=== PATIENT | female | born 1955 | race Hispanic/Latino ===

== ENCOUNTER 2021-02-22 12:37 | Emergency (ER) | payer OTHER ==
--- OUTSIDE RECORDS SUMMARY | 2021-02-22 12:40 | XMS REPORT | Continuity of Care Document ---
:1955 Author Organization [facility] t Address [address] [place] [address] Care Team Providers Name Role Phone Alexandro Martínez Primary Care Physician Therapy, Covid Infusion Attending Clinician Unavailable Chandra Correia MD Attending Clinician Chandra CORREIA Attending Clinician Unavailable Doctor Unassigned, Name Attending Clinician Unavailable Ronan TERRY, R Attending Clinician Unavailable Only, Db Test Attending Clinician Unavailable Day ELECTRONIC ENGINEERING DRAFTSPERSON Attending Clinician DAY Attending Clinician Unavailable Payers Payer Name Policy Type Policy Number Effective Date Expiration Date S ource Problems This patient has no known problems. Allergies, Adverse Reactions, Alerts Allergy Allergy Status Severity Reaction(s) Onset Inactive Treating Comm ents Source Name Type Date Date Clinician aspirin Adverse Active Info Not [facility] Reaction Available [facility] NO KNOWN Drug Active Univers ALLERGIE Class ity [facility] Social History Social Habit Start Date Stop Date Quantity Comments Source Exposure to Not sure [facility] SARS-CoV-2 (event) Medica l Branch Sex Assigned At [birth year] [facility] 00:00:00 00:00:00 [facility] Smoking Status Start Date Stop Date Source Unknown if ever smoked [facility] Medications Ordered Filled Start Stop Current Ordering Indication Dosage Frequency Signature Comments Components Source Medication Medication Date Date Medication? Clinician (SIG) Name Name casirivimab 2020-03- No [id number] 1200mg 1,200 mg, Univers -imdevimab 0-12 10-12 Subcutaneo it y of (REGEN-COV 21:45: 20:30 us, ONCE, [place] (EUA)) 00 :00 1 dose, On Medical injection Bebo Carbajal 1,200 mg 12/11/20 at 1645, Routine Estradiol Estradiol 2018-0 Yes [facility] [address] [facility] 4[facility]25 [facility] directed [facility] Atorvastati Atorvastati Yes Maxim not [facility] n Calcium n Calcium [facility] defined [facility] Symbicort Symbicort Yes Maxim not [facility] defined [facility] Zolpidem Zolpidem Yes Maxim not [facility] Tartrate Tartrate [facility] defined [facility] Alprazolam Alprazolam Yes Maxim not [facility] defined [facility] Spironolact Spironolact Yes Maxim not [facility] one one Ramirez defined [facility] Pantoprazol Pantoprazol Yes Maxim not [facility] e Sodium e Sodium Ramirez defined [facility] Lyrica Lyrica Yes Maxim (Schedule [facility] V Drug) [facility] - TAKE ONE [facility]oria CAPSULE BY l MOUTH Outpati TWICE A ent DAY Clinics Venlafaxine Venlafaxine Yes Maxim not [facility] HCl ER HCl ER Ramirez defined [facility] Vital Signs Vital Name Observation Time Observation Value Comments Source Systolic blood 2020-12-11 21:15:00 127 mm[Hg] Univer sity of pressure [facility] Diastolic blood 2020-12-11 21:15:00 81 mm[Hg] Unive rsity of pressure [facility] Heart rate 2020-12-11 21:15:00 105 /min [facility] Body temperature 2020-12-11 21:15:00 37.22 Ioana [facility] Respiratory rate 2020-12-11 21:15:00 18 /min [facility] Oxygen saturation in 2020-12-11 21:15:00 94 /min [facility] Arterial blood by [facility] Pulse oximetry Branch Body height 2020-12-11 20:29:00 162.6 cm [facility] Body weight 2020-12-11 20:29:00 76.204 kg [facility] BMI 2020-12-11 20:29:00 28.84 kg/m2 [facility] Procedures Procedure Date / Time Performed Performing Clinician Souralaina e [id number] CONSENT 2020-12-11 05:01:00 Doctor Unassigned, No [facility] ASSIGNMENT OF BENEFITS 2020-10-26 19:10:15 Doctor Unassigned, No [facility] Encounters Start End Encounter Admission Attending Care Care Encounter Source Date/Time Date/Time Type Type Clinicians Facility Department ID 2020-12-11 2020-12-11 Nurse Therapy, Adc Covid Infusion [facility] [id number] Univers 15:29:07 16:29:07 Visit José Luis Correia [id number] ity [facility] [id number] [id number] [facility] 053 Branch 2020-12-11 2020-12-11 Outpatient [facility] [id number] Univers 16:00:00 16:00:00 [id number] ity [facility] 2020-12-11 2020-12-11 Outpatient R JEFF, [facility] [id number] Univers 16:00:00 16:00:00 JOSÉ LUIS ity [facility] 2020-12-11 2020-12-11 Orders Doctor MELÉNDEZ [id number] Univers 00:00:00 00:00:00 Only UnassINGRID kelsey [id number] ity of [place] [facility] [id number] Aristides as [phone] [facility] 009 Branch 2020-10-27 2020-10-27 Telephone MEDHAT Ferraro [id number] Univers 00:00:00 00:00:00 Soledad QUINTERO [id number] it y of [facility] [id number] Aristides as [phone] [facility] 019 Branch 2020-10-26 2020-10-26 Laboratory Only, Ang Db Test [facility] [id number] Univers 14:11:46 14:21:46 Only Marga Peck [facility] [id number] ity of [place] [id number] Aristides as Kale?Blea [id number] Ar dicjelani [address] Medical [facility] 2020-10-26 2020-10-26 Outpatient R DAY [facility] [id number] Univers 13:50:00 13:50:00 MARGA ity [facility] 2020-10-26 2020-10-26 Orders Doctor MEDHAT [id number] Univers 00:00:00 00:00:00 Only Unassigned, INGRID [id number] ity of [place] [facility] [id number] Aristides as [phone] [address] 2020-08-13 2020-08-13 Outpatient [facility] [id number] [facility] 2020-07-24 2020-07-24 Outpatient [facility] [id number] [facility]00 [facility] 2018-06-28 2018-06-28 [facility] [id number] 15:30:00 15:30:00 [facility] 2018-06-24 2018-06-24 [facility] [id number] 10:00:00 10:00:00 t Specialty/U [facility]idi [facility] - Specialty rology Memori a /Urology Clinic [facility] ent [facility] 2018-04-27 2018-04-27 [facility] [id number] 13:30:00 13:30:00 t [facility] Results This patient has no known results.
[2021-02-22 14:32] LABS: SARS-COV-2 RT PCR POSITIVE (NEGATIVE)
--- NOTE | 2021-02-22 15:05 | ER ---
Nurse's Notes [facility] Name: Selene Perdomo Age: 65 yrs Sex: Female : 1955 Arrival Date: 02/22/2021 Time: 12:38 Bed 11 Private MD: Diagnosis: SARS-associated coronavirus as the cause of diseases classified elsewhere Presentation: 02/22 12:49 Chief complaint: Patient states: Cough and body aches that began this morning. Pt ss states, "This feels the same as when I had covid last.". Coronavirus screen: Client denies travel out of the [place] in the last 14 days. Ebola Screen: Patient denies exposure to infectious person. Patient denies travel to an Ebola-affected area in the 21 days before illness onset. Initial Sepsis Screen: Does the patient meet any 2 criteria? No. Patient's initial sepsis screen is negative. Does the patient have a suspected source of infection? No. Patient's initial sepsis screen is negative. Risk Assessment: Do you want to hurt yourself or someone else? Patient reports no desire to harm self or others. Onset of symptoms was February 22, 2021. 12:49 Method Of Arrival: Ambulatory ss 12:49 Acuity: KRISTINA 4 ss Historical: - Allergies: 12:51 No Known Allergies; ss - PMHx: 12:51 Hypertensive disorder; Diabetes mellitus; Asthma; Fibromyalgia; ss - Immunization history:: Client reports receiving the 2nd dose of the Covid vaccine. - Social history:: Smoking status: Patient denies any tobacco usage or history of. Screenin:39 Abuse screen: Denies threats or abuse. Denies injuries from another. Nutritional ss screening: No deficits noted. Tuberculosis screening: Never had TB. Fall Risk None identified. Assessment: 14:39 General: Behavior is calm, cooperative. Neuro: Level of Consciousness is awake, alert, ss obeys commands. Cardiovascular: Capillary refill < 3 seconds is brisk in bilateral fingers. Respiratory: Reports cough that is Airway is patent Respiratory effort is even, unlabored, Respiratory pattern is regular, symmetrical. Derm: Skin is intact, is healthy with good turgor, Skin is dry, Skin is pink, warm \\T\\ dry. normal. Vital Signs: 12:49 Pulse 107; Resp 18; Temp 98.2(TE); Weight 74.84 kg; Height 5 ft. 1 in. (154.94 cm); ss Pain 5/10; 12:52 BP 148 / 90; Pulse Ox 96% ; ss 12:52 Pulse 87; ss 12:49 Body Mass Index 31.18 (74.84 kg, 154.94 cm) ED Course: 12:38 Patient arrived in ED. ds1 12:51 Triage completed. ss 12:51 Arm band placed on right wrist. ss 14:39 Patient has correct armband on for positive identification. Bed in low position. ss 14:39 No provider procedures requiring assistance completed. Patient did not have IV access ss during this emergency room visit. 14:40 Sid Landeros PA is PHCP. jr8 14:40 Tay nAdrew MD is Attending Physician. jr8 15:27 Shantel Marsh, RN is Primary Nurse. ss Administered Medications: No medications were administered Outcome: 15:04 Discharge ordered by . jr8 15:30 Discharged to home ambulatory. ss 15:30 Condition: good 15:30 Discharge instructions given to patient, Instructed on discharge instructions, follow up and referral plans. Demonstrated understanding of instructions, follow-up care, Prescriptions given X 2. 15:30 Patient left the ED. ss Signatures: Yesy Jacob ds1 Shantel Marsh, MARA RN Sid Landeros PA PA jr8
--- NOTE | 2021-02-22 15:05 | EDPHYS ---
Physician Documentation [facility] Name: Selene Perdomo Age: 65 yrs Sex: Female : 1955 Arrival Date: 02/22/2021 Time: 12:38 Bed 11 Private MD: ED Physician Tay Andrew HPI: 02/22 15:05 This 65 yrs old Female presents to ER via Ambulatory with complaints of Covid jr8 Test, Cough, Chills. 15:05 Onset: The symptoms/episode began/occurred gradually. Associated signs and symptoms: jr8 Pertinent positives: cough, headache, body aches chills. The patient has experienced a previous episode. The patient has not recently seen a physician. Historical: - Allergies: 12:51 No Known Allergies; ss - PMHx: 12:51 Hypertensive disorder; Diabetes mellitus; Asthma; Fibromyalgia; ss - Immunization history:: Client reports receiving the 2nd dose of the Covid vaccine. - Social history:: Smoking status: Patient denies any tobacco usage or history of. ROS: 15:05 Eyes: Negative for injury, pain, redness, and discharge, Neck: Negative for injury, jr8 pain, and swelling, Cardiovascular: Negative for chest pain, palpitations, and edema, Abdomen/GI: Negative for abdominal pain, nausea, vomiting, diarrhea, and constipation, Back: Negative for injury and pain, MS/Extremity: Negative for injury and deformity, Skin: Negative for injury, rash, and discoloration. 15:05 Constitutional: Positive for body aches, chills. 15:05 ENT: Positive for sinus congestion. 15:05 Respiratory: Positive for cough, Negative for dyspnea on exertion, shortness of breath, sputum production, wheezing. 15:05 Neuro: Positive for headache. 15:05 All other systems are negative. Exam: 15:05 Constitutional: This is a well developed, well nourished patient who is awake, alert, jr8 and in no acute distress. Eyes: Pupils equal round and reactive to light, extra-ocular motions intact. Lids and lashes normal. Conjunctiva and sclera are non-icteric and not injected. Cornea within normal limits. Periorbital areas with no swelling, redness, or edema. ENT: Nares patent. No nasal discharge, no septal abnormalities noted. Tympanic membranes are normal and external auditory canals are clear. Oropharynx with no redness, swelling, or masses, exudates, or evidence of obstruction, uvula midline. Mucous membranes moist. Neck: Trachea midline, no thyromegaly or masses palpated, and no cervical lymphadenopathy. Supple, full range of motion without nuchal rigidity, or vertebral point tenderness. No Meningismus. Cardiovascular: Regular rate and rhythm with a normal S1 and S2. No gallops, murmurs, or rubs. Normal PMI, no JVD. No pulse deficits. Respiratory: Lungs have equal breath sounds bilaterally, clear to auscultation and percussion. No rales, rhonchi or wheezes noted. No increased work of breathing, no retractions or nasal flaring. Abdomen/GI: Soft, non-tender, with normal bowel sounds. No distension or tympany. No guarding or rebound. No evidence of tenderness throughout. Back: No spinal tenderness. No costovertebral tenderness. Full range of motion. Skin: Warm, dry with normal turgor. Normal color with no rashes, no lesions, and no evidence of cellulitis. MS/ Extremity: Pulses equal, no cyanosis. Neurovascular intact. Full, normal range of motion. Neuro: Awake and alert, GCS 15, oriented to person, place, time, and situation. Cranial nerves II-XII grossly intact. Motor strength 5/5 in all extremities. Sensory grossly intact. Cerebellar exam normal. Normal gait. Vital Signs: 12:49 Pulse 107; Resp 18; Temp 98.2(TE); Weight 74.84 kg; Height 5 ft. 1 in. (154.94 cm); Pain 5/10; 12:52 BP 148 / 90; Pulse Ox 96% ; ss 12:52 Pulse 87; ss 12:49 Body Mass Index 31.18 (74.84 kg, 154.94 cm) MDM: 14:40 Patient medically screened. [email or web address] 15:04 Data reviewed: vital signs, nurses notes, lab test result(s), and as a result, I will [email or web address] discharge patient. Data interpreted: Pulse oximetry: on room air is 96 %. Interpretation: normal. Counseling: I had a detailed discussion with the patient and/or guardian regarding: the historical points, exam findings, and any diagnostic results supporting the discharge/admit diagnosis, lab results, the need for outpatient follow up, a family practitioner, to return to the emergency department if symptoms worsen or persist or if there are any questions or concerns that arise at home. 02/22 12:52 Order name: COVID-19/FLU A+B (Document "Date of Onset" if Symptomatic); Complete Time: ss 14:45 Administered Medications: No medications were administered Disposition Summary: 02/22/21 15:04 Discharge Ordered Location: Home jr8 Problem: new jr8 Symptoms: have improved jr8 Condition: Stable jr8 Diagnosis - SARS-associated coronavirus as the cause of diseases classified elsewhere jr8 Followup: jr8 - With: Private Physician - When: 5 - 6 days - Reason: Recheck today's complaints, Continuance of care, Re-evaluation by your physician Discharge Instructions: - Discharge Summary Sheet jr8 - COVID-19 jr8 - 10 Things You Can Do to Manage Your COVID-19 Symptoms at Home - [facility] jr8 Forms: - Medication Reconciliation Form jr8 - Thank You Letter jr8 - Antibiotic Education jr8 - Prescription Opioid Use jr8 Prescriptions: - promethazine-DM 6.25-15 mg/5 mL Oral syrup - take 5 milliliter by ORAL route every 4-6 hours As needed as needed, not to jr8 exceed 30 mL in 24 hours; 110 milliliter; Refills: 0, Product Selection Permitted Addendum: 02/24/2021 18:49 Co-signature as Attending Physician, Tay Andrew MD. m a2 Signatures: Dispatcher [employer] Shantel Onofre RN RN Sid Landeros PA PA jr8 Tay Andrew MD MD ma2 Corrections: (The following items were deleted from the chart) 02/22 15:03 14:45 Chest Single View+RAD.RAD.BRZ ordered. EDMS EDMS
[2021-02-22 15:35] VITALS: TEMP 98.2
[2021-02-22 15:36] VITALS: BP 148/90; O2SAT 96
== END 2021-02-22 15:30 | disposition home or self-care (01) ==
LOC: ER 12:37
DX: U07.1 COVID-19 (principal); I10 Essential (primary) hypertension
CPT/HCPCS: 0240U; 99282

== ENCOUNTER 2024-02-29 11:13 | Day surgery (SDC) | payer OTHER ==
[2024-02-26 15:54] LABS: Absolute Basophils 0.1 K/uL (0-0.5); Absolute Eosinophils 0.5 K/uL (0-0.5); Absolute Monocytes 0.6 K/uL (0.1-1.3); Absolute Neutrophil 3.4 K/uL (1.8-8.0); Basophils % 1.4 % (0-1.3); Hematocrit 39.5 % (36.0-45.0); Hemoglobin 12.7 g/dL (12.0-15.0); Lymphocytes % 30.1 % (15.3-44.8); MCHC 32.2 g/dL (32.0-36.0); MPV 8.1 fL (7.6-11.3); Monocytes % 9.1 % (3.3-12.3); Neutrophils % 51.4 % (41.7-73.7); Platelets 252 thou/uL (152-406); RBC Red Blood Cell Count 4.24 M/uL (3.86-4.86); Red Cell Distribution Width 14.1 % (12.1-15.2)
--- NOTE | 2024-02-26 17:05 | RAD REPORT ---
EXAMINATION: TWO VIEW CHEST XR CLINICAL INDICATION: Female, 68 years old. [facility] Pre op pending arm mass removal TECHNIQUE: 2 view radiographs of the chest were performed. COMPARISON: 08/22/2021 FINDINGS: The lungs are well inflated and clear. No pneumothorax or sizable effusion. The heart is normal in si ze. Mediastinal contours are unremarkable. IMPRESSION: No acute or significant abnormalities.
--- NOTE | 2024-02-29 11:18 | EKG ---
Test Date: 2024-02-26 Test Time: 16:41:04 Tube Puller: AD MEASUREMENT RESULTS: Intervals: Rate: 64 MO: 148 QRSD: 82 QT: 404 QTc: 416 Garfield: P: 43 MO: 148 QRS: 72 T: 50 INTERPRETIVE STATEMENTS: Normal sinus rhythm Normal ECG Compared to ECG 10/12/2007 08:42:10 Sinus bradycardia no longer present Electronically Signed On 02-29-24 11:12:47 KEEPER HELPER by Geo Hernandez
[2024-02-29] MEDS: NA CHLORIDE 0.9% 1,000 ML ONE (11:30)
[2024-02-29] MEDS ORDERED: FENTANYL CITR 100 MCG/2 ML ONE (12:25)
[2024-02-29] MEDS ORDERED: ONDANSETRON 4 MG/2 ML VIAL ONE (12:25)
[2024-02-29] MEDS ORDERED: propofoL 200 MG/20 ML VIAL IV ONE (12:25)
[2024-02-29] MEDS ORDERED: LIDOCAINE 2% MPF 5 ML VIAL ONE (12:25)
[2024-02-29] MEDS ORDERED: EPHEDRINE SULF 50 MG/ML VIAL ONE (12:51)
[2024-02-29] MEDS ORDERED: dexAMETHasone 10 MG/ML VIAL ONE (12:53)
[2024-02-29] MEDS: CEFAZOLIN SODIUM 1 GM/VIAL ONE (12:54)
[2024-02-29] MEDS ORDERED: Mastisol Adhesive Liq ONE (13:04)
--- NOTE | 2024-02-29 13:35 | P.BOP ---
Preoperative diagnosis: R upper mass tender subQ mass Postoperative diagnosis: same Primary procedure: Excisional biopsy of R upper mass tender subQ mass 4x4cm Estimated blood loss: <10cc Specimen: mass, Findings: multilobulated mass Anesthesia: General Complications: None Transferred to: Recovery Room Condition: Good
[2024-02-29 13:52] VITALS: O2SAT 96
[2024-02-29 14:20] VITALS: BP 112/67; TEMP 97.6
[2024-02-29] MEDS: CODEINE 30MG/APAP 300MG TAB ONE (14:45)
== END 2024-02-29 15:06 | disposition home or self-care (01) ==
LOC: OR 11:13
PROVIDERS: ATTEND Surgery
PROC: 0JBD0ZZ Excision of Right Upper Arm Subcutaneous Tissue and Fascia, Open Approach (ICD-10-PCS; principal; 2024-02-29 12:45)
DX: D17.21 Benign lipomatous neoplasm of skin and subcutaneous tissue of right arm (principal)
CPT/HCPCS: 11404; 93005; 85025; 80048; 36415; 82947 ×2; 88304; 71046; J2704; J2003; J3010; J1100; J2405; J7030; J0690

== ENCOUNTER 2024-04-04 08:08 | Emergency (ER) | payer OTHER ==
[2024-04-04 09:09] LABS: Absolute Basophils 0.1 K/uL (0-0.5); Absolute Eosinophils 0.5 K/uL (0-0.5); Absolute Lymphocytes (CBC) 1.3 K/uL (0.7-4.9); Absolute Monocytes 1.1 K/uL (0.1-1.3); Absolute Neutrophil 10.3 K/uL (1.8-8.0); Basophils % 0.7 % (0-1.3); Eosinophils % 3.5 % (0-4.4); Hematocrit 41.6 % (36.0-45.0); Hemoglobin 14.1 g/dL (12.0-15.0); Lymphocytes % 9.6 % (15.3-44.8); MCH 30.6 pg (27.0-35.0); MPV 8.7 fL (7.6-11.3); Monocytes % 8.1 % (3.3-12.3); Neutrophils % 78.1 % (41.7-73.7); Platelets 301 thou/uL (152-406); RBC Red Blood Cell Count 4.62 M/uL (3.86-4.86); Red Cell Distribution Width 14.4 % (12.1-15.2)
[2024-04-04 09:20] LABS: BUN Blood Urea Nitrogen 12 mg/dL (7-18); Bicarbonate 30 mEq/L (21-32); Glomerular Filtration Rate 58 ml/min (=/>90); Glucose Level 121 mg/dL (74-106); Magnesium 2.4 mg/dL (1.6-2.4); Sodium Level 139 mEq/L (136-145)
[2024-04-04 09:23] LABS: Troponin High Sensitivity < 3.0 pg/mL (<58.9)
[2024-04-04 09:50] LABS: Specific Gravity 1.012 (1.005-1.030); Sqamous Epithelial <5 /HPF (None Seen); Urine Bacteria None Seen /HPF (<20); Urine Bilirubin NEGATIVE (Negative); Urine Blood Negative (Negative); Urine Clarity Clear (Clear); Urine Color Light-Yellow (Yellow); Urine Culture Reflex Order NOT NEEDED; Urine Glucose NEGATIVE (Negative); Urine Ketones NEGATIVE (Negative); Urine Micro Reflex YN NO BILL MICROSCOPIC; Urine Mucus Slight /HPF (None Seen); Urine Nitrite NEGATIVE (Negative); Urine Protein NEGATIVE (Negative); Urine RBC None Seen /HPF (None Seen); Urine Urobilinogen Normal (Normal); Urine WBC None Seen /HPF (<5)
[2024-04-04] MEDS ORDERED: METHOCARBAMOL 1,000 MG/10 ML VIAL ONE ×2 (10:24→10:48)
[2024-04-04] MEDS ORDERED: KETOROLAC 30 MG/ML INJ ONE (10:25)
[2024-04-04] MEDS ORDERED: NA CHLORIDE 0.9% 100 ML ONE ×2 (10:25→10:48)
--- NOTE | 2024-04-04 10:42 | RAD REPORT ---
Procedure: Chest Single View HISTORY: Cough COMPARISON: 2023 FINDINGS: The lungs appear clear of acute infiltrate. No significant pleural effusion noted. The heart is normal size. IMPRESSION: No acute abnormality is displayed.
--- NOTE | 2024-04-04 11:59 | RAD REPORT ---
EXAMINATION: CT HEAD WITHOUT CONTRAST CT CERVICAL SPINE WITHOUT CONTRAST CLINICAL INDICATION: Dizziness. Headache. Neck pain TECHNIQUE: Axial CT images from the skull base to the vertex without intravenous contrast. Axial CT i mages through the cervical spine were obtained without intravenous contrast. Sagittal and coronal reformatted images were created from the data set. Coronal and sagittal reformatted images were creat ed from the data set. One or more of the following dose reduction techniques were used: Automated exposure control, adjustment of the mA and/or kV according to patient size, and/or iterative reconstr uction. Unless otherwise specified, incidental findings do not require dedicated imaging follow-up. [id number]. Comparison: None FINDINGS: An intracranial bleed is not seen. Ventricles are normal in caliber. No significant hypodensity within the brain No extra-axial fluid collection. No fluid within the sinuses/mastoids No fracture or dislocation is seen involving the cervical spine. No high-grade central/foraminal stenosis noted. IMPRESSION: No acute intracranial abnormality noted A cervical fracture is not seen. If the patient continues to have symptoms to suggest acute COMPUTER EDUCATION TEACHER/spinal pathology then MRI would be rec ommended
--- NOTE | 2024-04-04 12:03 | RAD REPORT ---
EXAMINATION: CTA HEAD CLINICAL INDICATION: Headache. Dizziness TECHNIQUE: Axial CT images were obtained through the head after 100 cc Isovue-370 intravenous contras t utilizing angiographic protocol with 3D post-processing (maximum intensity projection images, volume rendered images and/or shaded surface rendered images). One or more of the following dose red uction techniques were used: Automated exposure control, adjustment of the mA and/or kV according to patient size, and/or iterative reconstruction. Unless otherwise specified, incidental findings do not require dedicated imaging follow-up. COMPARISON: None FINDINGS: Distal internal carotid, basilar, anterior cerebral, middle cerebral and posterior cerebral arteries do not demonstrate a significant stenosis An aneurysm not noted. No large vessel occlusion IMPRESSION: No acute vascular abnormality displayed
--- NOTE | 2024-04-04 12:03 | RAD REPORT ---
EXAMINATION: Neck Angio CLINICAL INDICATION: Neck pain. Dizziness. Headache TECHNIQUE: Axial CT images were obtained from the aortic arch to the skull base after intravenous adm inistration of 100 cc Isovue-370 utilizing angiographic protocol. Multiplanar reformats, as well as 3D post-processing (maximum intensity projection images, volume rendered images and/or shaded surface rendered images) were generated and reviewed. One or more of the following dose reduction techniques were used: Automated exposure control, adjustment of the mA and/or kV according to patient size, and/or iterative reconstruction. Unless otherwise specified, incidental findings do not require dedicated imaging follow-up. COMPARISON: No prior exam. FINDINGS: The visualized aortic arch and great vessels do not demonstrate a significant abnormality Common carotid, internal carotid and external carotid arteries unremarkable. Vertebral arteries unremarkable No significant stenosis noted. A dissection is not seen. Methods for NASCET criteria: Mild stenosis, 0% to 49%; Moderate stenosis 50% to 69%; Severe stenosis, 70% to 99% IMPRESSION: No acute vascular abnormality displayed
--- NOTE | 2024-04-04 12:21 | ER ---
Nurse's Notes [facility] Name: Selene Perdomo Age: 68 yrs Sex: Female : 1955 Arrival Date: 04/04/2024 Time: 08:08 Bed 10 Private MD: Diagnosis: Cervicalgia Presentation: 04/04 08:17 Chief complaint: Patient states: Cough since Thursday and not sleeping well. Vomited once ll1 Thursday. BP fluctuating 120-140's systolic for 2 days. R side of neck pain states "artery" pain. Coronavirus screen: Client denies travel out of the [place] in the last 14 days. At this time, the client does not indicate any symptoms associated with coronavirus-19. Ebola Screen: Patient denies travel to an Ebola-affected area in the 21 days before illness onset. Acute neurological deficit: none identified. Initial Sepsis Screen: Does the patient meet any 2 criteria? No. Patient's initial sepsis screen is negative. Does the patient have a suspected source of infection? No. Patient's initial sepsis screen is negative. Risk Assessment: Do you want to hurt yourself or someone else? Patient reports no desire to harm self or others. Onset of symptoms was April 01, 2024. 08:17 Method Of Arrival: Wheelchair ll1 08:17 Acuity: KRISTINA 3 ll1 Triage Assessment: 08:17 General: Appears uncomfortable, Behavior is calm, cooperative, appropriate for age. ll1 Pain: Complains of pain in R neck Quality of pain is described as aching. EENT: Reports pain in R neck. Neuro: Reports. Respiratory: Reports cough that is. Historical: - Allergies: 08:15 Sulfa (Sulfonamide Antibiotics); ll1 - PMHx: 08:15 Asthma; diabetes mellitus; Fibromyalgia; Hypertensive disorder; ll1 - PSHx: 08:15 arm surgery lump reoved; ll1 - Immunization history:: Adult Immunizations up to date. - Infectious Disease History:: Denies. - Social history:: Smoking status: Patient denies any tobacco usage or history of. Screenin:00 [facility] ED Fall Risk Assessment (Adult) History of falling in the last 3 months, hb including since admission No falls in past 3 months (0 pts) Confusion or Disorientation No (0 pts) Intoxicated or Sedated No (0 pts) Impaired Gait No (0 pts) Mobility Assist Device Used No (0 pt) Altered Elimination No (0 pt) Score/Fall Risk Level 0 - 2 = Low Risk Oriented to surroundings, Maintained a safe environment, Educated pt \\T\\ family on fall prevention, incl call for assistance when getting out of bed. Abuse screen: Denies threats or abuse. Denies injuries from another. Nutritional screening: No deficits noted. Tuberculosis screening: No symptoms or risk factors identified. Assessment: 10:24 Reassessment: Patient and/or family updated on plan of care and expected duration. Pain ll1 level reassessed. 10:59 General: Appears in no apparent distress. uncomfortable, Behavior is calm, cooperative. hb Pain: Pain currently is 8 out of 10 on a pain scale. Neuro: Level of Consciousness is awake, alert, obeys commands, Oriented to person, place, time, situation. Cardiovascular: Patient's skin is warm and dry. Respiratory: Respiratory effort is even, unlabored, Respiratory pattern is regular, symmetrical. GI: No signs and/or symptoms were reported involving the gastrointestinal system. : No signs and/or symptoms were reported regarding the genitourinary system. EENT: No signs and/or symptoms were reported regarding the EENT system. Derm: Skin is pink, warm \\T\\ dry. Musculoskeletal: Reports severe right sided neck pain that radiates to right head. 12:30 Reassessment: Patient appears in no apparent distress at this time. Patient and/or hb family updated on plan of care and expected duration. Pain level reassessed. Patient is alert, oriented x 3, equal unlabored respirations, skin warm/dry/pink. Vital Signs: 08:17 BP 130 / 75; Pulse 88; Resp 17; Temp 97.1; Pulse Ox 95% ; Weight 76.2 kg; Height 5 ft. ll1 0 in. ; Pain 9/10; 12:00 BP 132 / 82; Pulse 80; Resp 16; Pulse Ox 99% on R/A; hb 08:17 Body Mass Index 32.81 (76.20 kg, 152.4 cm) ll1 08:17 Pain Scale: Adult ll1 ED Course: 08:11 Patient arrived in ED. im 08:16 Doc Bullard PA is PHCP. cp 08:16 Batres, Rui, DO is Attending Physician. cp 08:19 Triage completed. ll1 08:19 Arm band placed on. ll1 08:55 Inserted saline lock: 20 gauge in right antecubital area, using aseptic technique. hb ,using aseptic technique. by [facility] Blood collected. Flushed with 10 mL NS. 08:56 Basic Metabolic Panel Sent. ty 08:56 CBC with Diff Sent. ty 08:56 Magnesium Sent. ty 08:56 Troponin HS Sent. ty 09:25 XRAY Chest (1 view) In Process Unspecified. EDMS 10:24 Patient placed in an exam room, on a stretcher. ll1 10:45 Tierra Tafoya, RN is Primary Nurse. hb 11:00 Patient has correct armband on for positive identification. Bed in low position. Call hb light in reach. Side rails up X 1. Provided Education on: tests, result times, medications . 11:29 CT Head C Spine In Process Unspecified. EDMS 11:29 CT Head Angio In Process Unspecified. EDMS 11:29 CT Neck Angio In Process Unspecified. EDMS 12:42 No provider procedures requiring assistance completed. IV discontinued, intact, hb bleeding controlled, No redness/swelling at site. Pressure dressing applied. Administered Medications: 08:24 CANCELLED (Physician Discretion): [id number] mg IVPB once over 1 hrs; (mix in NS cp 100 mL) 10:59 Drug: Ketorolac IVP 15 mg IVP once Route: IVP; Site: left antecubital; hb 11:50 Follow up: Response: No adverse reaction hb 11:50 Follow up: Response: No adverse reaction hb 10:59 Drug: Methocarbamol IVPB 500 mg IVPB once over 1 hrs; (mix in NS 100 mL) Route: IVPB; hb Infused Over: 1 hrs; Site: left antecubital; 11:55 Follow up: Response: No adverse reaction; IV Status: Completed infusion; IV Intake: hb 100ml 12:41 Drug: HYDROcodone-acetaminophen PO 5 mg-325 mg 1 tabs PO once Route: PO; hb 12:41 Follow up: Response: Medication administered at discharge. hb Medication: 12:00 VIS not applicable for this client. hb Intake: 11:55 IV: 100ml; Total: 100ml. hb Outcome: 12:20 Discharge ordered by . cp 12:42 Discharged to home via wheelchair, with family, hb 12:42 Condition: stable 12:42 Discharge instructions given to patient, Instructed on discharge instructions, follow up and referral plans. medication usage, Demonstrated understanding of instructions, follow-up care, medications, Prescriptions given X 2, 12:43 Patient left the ED. Signatures: Dispatcher [employer] EDMS Doc Bullard PA PA cp Baxter, Heather, RN RN Yanelis Sultana RN RN ll1 Shala Cooper Tylor ty
--- NOTE | 2024-04-04 12:21 | EDPHYS ---
Physician Documentation [facility] Name: Selene Perdomo Age: 68 yrs Sex: Female : 1955 Arrival Date: 04/04/2024 Time: 08:08 Bed 10 Private MD: ED Physician Rui Batres HPI: 04/04 08:20 This 68 yrs old Female presents to ER via Wheelchair with complaints of High cp Blood Pressure, Neck Pain, <24hrs Old, Dizziness. 08:20 The patient or guardian complains of pain, that is acute. The symptoms are located cp right side of neck. 08:20 Onset: The symptoms/episode began/occurred yesterday. cp 08:20 Context: patient reports pain to right side of neck started shortly after waking up. cp 08:20 Associated signs and symptoms: Pertinent positives: headache, Pertinent negatives: cp fever, numbness, tingling, vomiting, weakness. Modifying factors: the symptoms are aggravated by movement, pain markedly worse when turning head to right. Historical: - Allergies: 08:15 Sulfa (Sulfonamide Antibiotics); ll1 - PMHx: 08:15 Asthma; diabetes mellitus; Fibromyalgia; Hypertensive disorder; ll1 - PSHx: 08:15 arm surgery lump reoved; ll1 - Immunization history:: Adult Immunizations up to date. - Infectious Disease History:: Denies. - Social history:: Smoking status: Patient denies any tobacco usage or history of. ROS: 08:25 Neck: Positive for pain with movement, pain at rest, swelling, tenderness, cp 08:25 Eyes: Negative for injury, pain, redness, and discharge, cp 08:25 Constitutional: Negative for body aches, chills, fever, poor PO intake, 08:25 ENT: Negative for drainage from ear(s), ear pain, sore throat, difficulty swallowing, difficulty handling secretions, 08:25 Cardiovascular: Negative for chest pain, edema, palpitations, 08:25 Respiratory: Negative for cough, shortness of breath, wheezing, 08:25 Abdomen/GI: Negative for abdominal pain, vomiting, diarrhea, constipation, 08:25 Neuro: Positive for headache, Negative for altered mental status, numbness, syncope, weakness, 08:25 All other systems are negative, cp Exam: 08:30 Constitutional: The patient appears in no acute distress, alert, awake, cp non-diaphoretic, non-toxic, well developed, well nourished, uncomfortable, 08:30 Head/Face: Normocephalic, atraumatic. cp 08:30 Eyes: Periorbital structures: appear normal, Conjunctiva: normal, no exudate, no injection, Sclera: no appreciated abnormality, Lids and lashes: appear normal, bilaterally, 08:30 ENT: External ear(s): are unremarkable, Nose: is normal, Mouth: Lips: moist, Oral mucosa: moist, Posterior pharynx: Airway: no evidence of obstruction, patent, erythema, is not appreciated, exudate, is not appreciated, 08:30 Neck: ROM/movement: pain, that is severe, with rotation to the left, with rotation to the right, limited range of motion, when rotating to the right, Meningeal signs: are not present, Lymph nodes: no appreciated lymphadenopathy, 08:30 Chest/axilla: Inspection: normal, 08:30 Cardiovascular: Rate: normal, Rhythm: regular, Pulses: Pulses are 2+ in right radial artery and left radial artery. Edema: is not appreciated, JVD: is not appreciated, 08:30 Respiratory: the patient does not display signs of respiratory distress, Respirations: normal, no use of accessory muscles, no retractions, labored breathing, is not present, Breath sounds: are clear throughout, no decreased breath sounds, no stridor, no wheezing, 08:30 Abdomen/GI: Exam negative for discomfort, distension, guarding, Inspection: abdomen appears normal, 08:30 Neuro: Orientation: to person, place \T\ time. Mentation: is normal, Cerebellar function: is grossly normal, Motor: moves all fours, no focal deficits, Sensation: is normal, 08:57 ECG was reviewed by the Attending Physician. cp Vital Signs: 08:17 BP 130 / 75; Pulse 88; Resp 17; Temp 97.1; Pulse Ox 95% ; Weight 76.2 kg; Height 5 ft. ll1 0 in. ; Pain 9/10; 12:00 BP 132 / 82; Pulse 80; Resp 16; Pulse Ox 99% on R/A; hb 08:17 Body Mass Index 32.81 (76.20 kg, 152.4 cm) ll1 08:17 Pain Scale: Adult ll1 MDM: 09:00 Differential diagnosis: C-Spine Fracture Cervical Disc Herniation Cervical Raiculopathy cp cervical strain, fracture, Spondylosis Thoracic Outlet Syndrome torticollis. 12:20 Medical Screening Exam initiated 12:20 Data reviewed: vital signs, nurses notes, lab test result(s), EKG, radiologic studies, cp CT scan, plain films, and as a result, I will discharge patient. 12:20 I considered the following discharge prescriptions or medication management in the emergency department Medications were administered in the Emergency Department. See MAR. Care significantly affected by the following chronic conditions: Diabetes, Hypertension. Counseling: I had a detailed discussion with the patient and/or guardian regarding the historical points, exam findings, and any diagnostic results supporting the discharge/admit diagnosis, lab results, radiology results, the need for outpatient follow up, a family practitioner, to return to the emergency department if symptoms worsen or persist or if there are any questions or concerns that arise at home. Response to treatment: the patient's symptoms have markedly improved after treatment, and as a result, I will discharge patient. 04/04 08:24 Order name: Basic Metabolic Panel; Complete Time: 09:57 04/04 09:57 Interpretation: Normal except: CL 108; GLUC 121; CRE 1.03; GFR 58. 04/04 08:24 Order name: CBC with Diff; Complete Time: 09:57 04/04 09:58 Interpretation: Normal except: WBC 13.20. 04/04 08:24 Order name: Magnesium; Complete Time: 09:57 04/04 08:24 Order name: Troponin HS; Complete Time: 09:57 04/04 08:24 Order name: Urinalysis W/Microscopic; Complete Time: 09:57 04/04 08:24 Order name: XRAY Chest (1 view); Complete Time: 11:10 04/04 09:58 Order name: CT Head C Spine; Complete Time: 12:07 04/04 12:07 Interpretation: Reviewed report. 04/04 09:59 Order name: CT Head Angio; Complete Time: 12:07 04/04 12:08 Interpretation: Report reviewed. 04/04 09:59 Order name: CT Neck Angio; Complete Time: 12:07 04/04 12:08 Interpretation: Report reviewed. 04/04 08:24 Order name: EKG - Nurse/Tech; Complete Time: 08:56 cp 04/04 08:24 Order name: IV Saline Lock; Complete Time: 08:56 cp 04/04 08:24 Order name: Labs collected and sent; Complete Time: 08:56 cp 04/04 08:24 Order name: O2 Per Protocol; Complete Time: 08:56 cp 04/04 08:24 Order name: O2 Sat Monitoring; Complete Time: 08:56 cp EC:57 Rate is 82 beats/min. Rhythm is regular. AK interval is normal. QRS interval is normal. cp QT interval is normal. T waves are Inverted in lead aVR. Interpreted by me. Reviewed by me. Administered Medications: 08:24 CANCELLED (Physician Discretion): [id number] mg IVPB once over 1 hrs; (mix in NS cp 100 mL) 10:59 Drug: Ketorolac IVP 15 mg IVP once Route: IVP; Site: left antecubital; hb 11:50 Follow up: Response: No adverse reaction hb 11:50 Follow up: Response: No adverse reaction hb 10:59 Drug: Methocarbamol IVPB 500 mg IVPB once over 1 hrs; (mix in NS 100 mL) Route: IVPB; hb Infused Over: 1 hrs; Site: left antecubital; 11:55 Follow up: Response: No adverse reaction; IV Status: Completed infusion; IV Intake: hb 100ml 12:41 Drug: HYDROcodone-acetaminophen PO 5 mg-325 mg 1 tabs PO once Route: PO; hb 12:41 Follow up: Response: Medication administered at discharge. hb Disposition: 14:46 I was immediately available on-site in the Emergency Department for consultation in the ms3 care of the patient. Disposition Summary: 04/04/24 12:20 Discharge Ordered Notes: Location: Home cp Problem: new cp Symptoms: have improved cp Condition: Stable cp Diagnosis - Cervicalgia cp Followup: cp - With: Private Physician - When: 2 - 3 days - Reason: Recheck today's complaints Discharge Instructions: - Discharge Summary Sheet cp - Musculoskeletal Pain cp - Heat Therapy cp - Neck Exercises cp Forms: - Medication Reconciliation Form cp - Antibiotic Education cp - Prescription Opioid Use cp - Patient Portal Instructions cp - Leadership Thank You Letter cp - Work release form ll1 Prescriptions: - diclofenac sodium 50 mg Oral tablet, delayed release (enteric coated) - take 1 tablet ORAL route every 12 hours as needed for pain; 20 tablet; Refills: cp 0, Product Selection Permitted - methocarbamol 500 mg Oral tablet - take 1 tablet ORAL route 3-4 times daily; 30 tablet; Refills: 0, Product cp Selection Permitted Signatures: Dispatcher [employer] EDMS Doc Bullard PA PA cp Baxter, Heather, RN RN Yanelis Sultana RN RN ll1 Rui Batres DO DO ms3 Corrections: (The following items were deleted from the chart) 08:24 08:24 Methocarbamol IVPB 750 mg IVPB once over 1 hrs; (mix in NS 100 mL) ordered. cp cp 08:24 08:24 BASIC METABOLIC PANEL+C.LAB.BRZ ordered. EDMS EDMS 08:24 08:24 CBC+H.LAB.BRZ ordered. EDMS EDMS 08:24 08:24 MAGNESIUM+C.LAB.BRZ ordered. EDMS EDMS 08:24 08:24 Troponin High Sensitivity+C.LAB.BRZ ordered. EDMS EDMS 08:24 08:24 Urinalysis W/Microscopic+U.LAB.BRZ ordered. EDMS EDMS 08:24 08:24 Chest Single View+RAD.RAD.BRZ ordered. EDMS EDMS
[2024-04-04] MEDS ORDERED: HYDROCODONE/APAP 5/325 MG TAB ONE (12:29)
[2024-04-04 13:05] VITALS: TEMP 97.1
[2024-04-04 13:06] VITALS: BP 132/82; O2SAT 99
--- NOTE | 2024-04-05 12:15 | EKG ---
Test Date: 2024-04-04 Test Time: 08:51:35 Safekeeping Clerk: PEDRO MEASUREMENT RESULTS: Intervals: Rate: 82 AL: 132 QRSD: 80 QT: 362 QTc: 422 [place]: P: 18 AL: 132 QRS: 56 T: 46 INTERPRETIVE STATEMENTS: Normal sinus rhythm Normal ECG Compared to ECG 02/26/2024 16:41:04 No significant changes Electronically Signed On 04-05-24 12:12:41 PHYSICAL THERAPY AIDES TEACHER by Geo Hernandez
== END 2024-04-04 12:43 | disposition home or self-care (01) ==
LOC: ER 08:08
DX: M54.2 Cervicalgia (principal); R51.9 Headache, unspecified; I10 Essential (primary) hypertension; E11.9 Type 2 diabetes mellitus without complications
CPT/HCPCS: 96365; 93005; 85025; 81001; 80048; 36415; 83735; 84484; 70450; 72125; 70496; 70498; 71045; 96375; 99284; Q9967; J2800